=== PATIENT | female | born 1935 | race Caucasian/White ===

== ENCOUNTER 2017-12-21 07:09 | Emergency (ER) | payer OTHER ==
[~2017-12-21] VITALS: Ht 149.9 cm; Wt 52.2 kg
--- NOTE | 2017-12-21 07:43 | ED GENERAL ADULT ---
History of Present Illness General Chief Complaint: General Adult Stated Complaint: WEAKNESS/SOB Source: patient, family Exam Limitations: dementia Vital Signs & Intake/Output Vital Signs & Intake/Output Vital Signs Date Time Temp Pulse Resp B/P B/P Pulse O2 O2 Flow FiO2 Mean Ox Delivery Rate 12/21 0925 97.0 60 20 160/70 100 Room Air 12/21 0800 96 Room Air 12/21 0718 97.2 128 18 132/74 96 Room Air Allergies Coded Allergies: prochlorperazine (From COMPAZINE) (Severe, STROKE SYMPTOMS 12/21/17) Reconcile Medications Amlodipine Besylate 10 MG TABLET 1 TAB PO DAILY HEART (Reported) Aspirin (Ecotrin*) 81 MG TABLET.DR 1 TAB PO DAILY HEART HEALTH (Reported) Donepezil HCl 10 MG TABLET 1 TAB PO DAILY DEMENTIA (Reported) Fluoxetine HCl 10 MG TABLET 1.5 TAB PO DAILY MENTAL HEALTH (Reported) Solifenacin Succinate (Vesicare) 5 MG TABLET 1 TAB PO DAILY BLADDER (Reported ) Triage Note: PT STATES SHE IS HAVING DIFFICULTY BREATHING SINCE SHE WOKE THIS AM. PT STATES SHE IS SHAKING AND SHE IS HAVING DIFFICULTY AMBULATING "IT FEELS WEIRD". PT STATES SHE FEELS SICK TO HER STOMACH. NO VOMITING Triage Nurses Notes Reviewed? yes Onset: Abrupt Duration: hour(s): (SEVERAL) Timing: single episode today Injury Environment: home Severity: mild No Modifying Factors: none Associated Symptoms: SHORTNESS OF BREATH, QUESTIONABLE BACK PAIN, QUESTION CHEST PAIN HPI: This is an 82-year-old female with history of hypertension, dementia who lives at home with her daughter who presents to the ER chief complaint of shortness of breath upon awakening this morning. According to the daughter she didn't really complain anything but she looked short of breath and she looked very shaky. This is unusual for her. She also reports some back pain and chest pain but can 't say when it started, this is new according to the daughter. No fever or chills. She has been eating and drinking well. No recent falls that she is aware of. She has noticed difficult time in scientology for the last month or so getting up and sitting down and gets more exhausted with that. Approximately a week or 2 ago she went to see her primary care doctor regarding some nonspecific head pain and had a CAT scan done that was normal. She is a nonsmoker nondrinker. No history of coronary disease. Past History Travel History Traveled to [place] past 21 day No Medical History Any Pertinent Medical History? see below for history Neurological: dementia Cardiovascular: hypertension Endocrine: hypothyroidism Tetanus Vaccine: 10/11/16 Surgical History Surgical History: non-contributory Psychosocial History What is your primary language Mauritian Tobacco Use: Never used ETOH Use: denies use Illicit Drug Use: denies illicit drug use Family History Hx Contributory? No Review of Systems Review of Systems Constitutional: Denies: chills, fever. EENTM: Reports: no symptoms. Respiratory: Reports: short of breath. Denies: cough. Cardiovascular: Reports: chest pain. GI: Denies: abdominal pain. Genitourinary: Reports: no symptoms. Musculoskeletal: Reports: back pain. Skin: Reports: no symptoms. Neurological/Psychological: Reports: see HPI (SHAKY, DIZZY). Hematologic/Endocrine: Denies: bruising, bleeding, polyuria, polydipsia. Immunologic/Allergic: Reports: no symptoms. All Other Systems: Reviewed and Negative Physical Exam Physical Exam General Appearance: well developed/nourished, alert, awake, anxious, mild distress Head: atraumatic, normal appearance Eyes: Bilateral: normal appearance, PERRL, EOMI. Ears, Nose, Throat: normal pharynx, normal ENT inspection, HARD OF HEARING Neck: normal inspection, supple, full range of motion Respiratory: normal breath sounds, chest non-tender, no respiratory distress Cardiovascular: regular rate/rhythm Peripheral Pulses: 2+ radial (R), 2+ radial (L) Gastrointestinal: normal bowel sounds, soft, non-tender Back: normal inspection, normal range of motion Extremities: normal inspection, normal capillary refill, normal range of motion, no edema Neurologic/Psych: no motor/sensory deficits, awake, alert, ORIENTED TO PERSON AND PLACE BUT NOT TIME Skin: intact, normal color, warm/dry Core Measures ACS in differential dx? Yes CVA/TIA Diagnosis: No Sepsis Present: No Sepsis Focused Exam Completed? No Progress Differential Diagnoses I considered the following diagnoses in my evaluation of the patient: [Pneumonia , CHF, acute CO, unstable angina, anxiety, UTI, likely disturbance or animals him] Plan of Care: Orders Procedure Date/time Status Straight Cath 12/21 1006 Active D-DIMER 12/21 0756 Complete Telemetry/Stem Cleaning Machine Feeder 12/21 0741 Active URINALYSIS 03/20 0741 Complete TROPONIN LEVEL 12/21 740 Complete PARTIAL THROMBOPLASTIN TIME 12/21 740 Complete PROTHROMBIN TIME 12/21 740 Complete LACTIC ACID 12/21 740 Complete COMPREHENSIVE METABOLIC PANEL 12/21 740 Complete CBC WITHOUT DIFFERENTIAL 12/21 740 Complete B-TYPE NATRIURETIC PEP (BNP) 12/21 740 Complete EKG 12/21 740 Active Laboratory Tests 12/21/17 1041: Lactic Acid Cancelled 12/21/17 1018: Urinalysis LIGHT H, Urine Color YEL, Urine Clarity HAZY H, Urine pH 8.5 H, Ur Specific [place] 1.015, Urine Protein TRACE H, Urine Ketones NEG, Urine Nitrite NEG, Urine Bilirubin NEG, Urine Urobilinogen 0.2, Ur Leukocyte Esterase NEG, Ur Microscopic SEDIMENT EXAMINED, Urine WBC RARE, Ur Epithelial Cells RARE, Urine Mucus FEW, Urine Hemoglobin NEG, Urine Glucose NEG 12/21/17 0756: Anion Gap 13, Estimated GFR > 60, BUN/Creatinine Ratio 21.7, Glucose 87, Lactic Acid 1.1, Calcium 10.1, Total Bilirubin 1.1, AST 22, ALT 13, Alkaline Phosphatase 85, Troponin I < 0.01, Tis-O-Tnhanzrqmcn Pept 64.8, Total Protein 7.3, Albumin 4.5, Globulin 2.8, Albumin/Globulin Ratio 1.6, PT 11.4, INR 1.05, APTT 29, D-Dimer High Sensitivty 348 H, CBC w Diff NO MAN DIFF REQ, RBC 4.09 L , MCV 95.7, MCH 31.7 H, MCHC 33.2, RDW 14.0, MPV 8.4, Gran % 40.7 L, Lymphocytes % 44.1, Monocytes % 10.6 H, Eosinophils % 2.7, Basophils % 1.9, Absolute Granulocytes 2.3, Absolute Lymphocytes 2.5, Absolute Monocytes 0.6, Absolute Eosinophils 0.2, Absolute Basophils 0.1 12/21/17 0743: D-Dimer High Sensitivty Cancelled 12/21/2017 11:04:24 AM Patient and related well in the ER with and without a walker, never becoming hypoxic. X-ray within normal limits. Labs within normal limits. Discussed with daughter at length. No indication to admit the patient to the hospital or short-term rehabilitation. Daughter was initially given ago and a three-day vacation but she may stay home to monitor her mother. I informed them that if she develops any further symptoms, fever chills vomiting she should need to come back to the ER. Patient is smiling no complaints at this time. Diagnostic Imaging: Viewed by Me: Radiology Read. Discussed w/RAD: Radiology Read. CXR Impression: PATIENT: LOUISA TERESA PRESENT AGE: 82 PATIENT ACCOUNT NO: [id number] : 37 LOCATION: [facility] ORDERING PHYSICIAN: Analilia Carvajal MD SERVICE DATE: 12/21/17 EXAM TYPE: RAD - XRY-CHEST XRAY , TWO VIEWS EXAMINATION: XR CHEST CLINICAL INFORMATION: Rule out pneumonia. Dyspnea on exertion. Chest pain/back pain. COMPARISON: None TECHNIQUE: 2 views of the chest were obtained. FINDINGS: The lungs are clear without consolidation, edema, or effusion. There is no pneumothorax. The cardiomediastinal silhouette appears normal. There are multilevel degenerative changes in the thoracic and lumbar spine. There is focal dextroscoliotic curvature at the thoracolumbar junction. There are mild atheromatous changes in the aorta. IMPRESSION: No active disease in the chest. DICTATED BY: Raman Linton MD DATE/TIME DICTATED: 12/21/17834 RECONNAISSANCE CREWMEMBER:RENEE DATE/TIME TRANSCRIBED:12/21/17834 CONFIDENTIAL, DO NOT COPY WITHOUT APPROPRIATE AUTHORIZATION. <Electronically signed in Other Vendor System> SIGNED BY: Raman Linton MD 12/21/17840 Initial ED EKG: SINUS KAM 56 BPM, DIFFUSE ST FLATTENING Departure Departure Time of Disposition: 1059 Disposition: HOME OR SELF CARE Condition: Stable Clinical Impression Primary Impression: Dyspnea Secondary Impressions: Shakiness Referrals: Cali DING,Rodney Kimball (PCP/Family) Additional Instructions: Please follow up with her primary care doctor in the office this week. Return to the ER immediately for any changing or worsening symptoms. Departure Forms: Customer Survey General Discharge Information Critical Care Note Critical Care Note Critical Care Time: non-applicable
[2017-12-21] MEDS ORDERED: ASPIRIN EC81 M1 PO (08:01)
[2017-12-21] MEDS ORDERED: AMLODIPINE BESY10 M1 PO (08:01)
[2017-12-21] MEDS ORDERED: VESICARE5 M1 PO (08:01)
[2017-12-21] MEDS ORDERED: DONEPEZIL HCL10 M1 PO (08:02)
[2017-12-21] MEDS ORDERED: FLUOXETINE HCL10 MG PO (08:02)
[2017-12-21 08:11] LABS: ABSOLUTE BASOPHIL COUNT 0.1 /CUMM (0.0-0.2); ABSOLUTE EOSINOPHIL COUNT 0.2 /CUMM (0.0-0.7); ABSOLUTE GRANULOCYTE CT 2.3 /CUMM (1.4-6.5); ABSOLUTE LYMPH COUNT 2.5 /CUMM (1.2-3.4); ABSOLUTE MONOCYTE COUNT 0.6 /CUMM (0.10-0.60); BASOPHIL % 1.9 % (0.0-2.0); EOSINOPHIL % 2.7 % (0-5); GRANULOCYTE % 40.7 % (42.2-75.2); HEMATOCRIT 39.2 % (37-47); MEAN CORPUSCULAR HGB 31.7 PG (27.0-31.0); MEAN CORPUSCULAR HGB CONC 33.2 G/DL (33.0-37.0); MEAN CORPUSCULAR VOLUME 95.7 FL (81.0-99.0); MEAN PLATELET VOLUME 8.4 FL (7.4-10.4); PLATELET COUNT 340 /CUMM (130-400); RED BLOOD CELL CT 4.09 /CUMM (4.20-5.40); WHITE BLOOD CELL COUNT 5.7 /CUMM (4.8-10.8)
--- NOTE | 2017-12-21 08:41 | RADIOLOGY REPORT ---
EXAMINATION: XR CHEST CLINICAL INFORMATION: Rule out pneumonia. Dyspnea on exertion. Chest pain/back pain. COMPARISON: None TECHNIQUE: 2 views of the chest were obtained. FINDINGS: The lungs are clear without consolidation, edema, or effusion. There is no pneumothorax. The cardiomediastinal silhouette appears normal. There are multilevel degenerative changes in the thoracic and lumbar spine. There is focal dextroscoliotic curvature at the thoracolumbar junction. There are mild atheromatous changes in the aorta. IMPRESSION: No active disease in the chest.
[2017-12-21 08:44] LABS: PT 11.4 SEC (9.4-12.5); PTT 29 SEC (25-37)
[2017-12-21 11:24] VITALS: BP 138/72
== END 2017-12-21 11:25 ==
LOC: ERH 07:09
PROVIDERS: Emergency Medicine
DX: R06.00 Dyspnea, unspecified (principal)
CPT/HCPCS: 71046; 81001; 93005; 93010

== ENCOUNTER 2018-06-24 13:15 | Emergency (ER) | payer OTHER ==
[~2018-06-24] VITALS: Ht 147.3 cm; Wt 49.0 kg
[~2018-06-24 13:15] MED LIST: AMLODIPINE BESY10 M1 PO; ASPIRIN EC81 M1 PO; DONEPEZIL HCL10 M1 PO; FLUOXETINE HCL10 MG PO; VESICARE5 M1 PO
--- NOTE | 2018-06-24 14:25 | ED GI/GU/ABDOMINAL COMPLAINT ---
History of Present Illness General Chief Complaint: General Adult Stated Complaint: "HEMORRHOID IS PERTRUDING & SPLITTING" PER FAMILY Source: patient, family Exam Limitations: dementia Vital Signs & Intake/Output Vital Signs & Intake/Output Vital Signs Date Time Temp Pulse Resp B/P B/P Pulse O2 O2 Flow FiO2 Mean Ox Delivery Rate 06/24 1437 96.0 58 20 144/64 97 Room Air 06/24 1330 97.9 65 20 140/74 96 Room Air Allergies Coded Allergies: prochlorperazine (From COMPAZINE) (Severe, STROKE SYMPTOMS 06/24/18) Reconcile Medications Amlodipine Besylate 10 MG TABLET 1 TAB PO DAILY HEART (Reported) Aspirin (Ecotrin*) 81 MG TABLET.DR 1 TAB PO DAILY HEART HEALTH (Reported) Donepezil HCl 10 MG TABLET 1 TAB PO DAILY DEMENTIA (Reported) Fluoxetine HCl 10 MG TABLET 1.5 TAB PO DAILY MENTAL HEALTH (Reported) Hydrocortisone (Anusol-Hc) 2.5 % CREAM..G. 1 TRELL TOP BID PRN hemorroid apply to affected area(s) Solifenacin Succinate (Vesicare) 5 MG TABLET 1 TAB PO DAILY BLADDER (Reported ) Triage Note: TRIAGE: PT TO ER WITH DAUGHTER C/C HEMORRHOID "WHICH IS VERY LARGE, OUTER AND ALSO APPEARED TO BE SPLIT" PER DAUGHTER. DAUGHTER REPORTS WHEN SHE CAME HOME LAST NIGHT SHE FOUND PATIENT WITH STOOL ON HER AND NOTICED THE POSSIBLE HEMORRHOID WHEN SHE WAS CLEANING HER UP. PATIENT HAS DEMENTIA AND OFFERS NO COMPLAINTS, DENIES PAIN. KENDRICK OATES EVALUATING PATIENT AT TRIAGE. Triage Nurses Notes Reviewed? yes ? n Is pt currently ? No HPI: Patient is a 83 y/o female with dementia who presents with her daughter for evaluation of possible hemorrhoids. According to daughter the patient has been complaining of abdominal pain for the last few days while stooling. Yesterday the daughter found the patient with feces on her leg and noticed a buldging mass when cleaning the rectum. She denies any visualizing any blood in the rectum or recent constipation. Patient does not currently offer any complaints. Past History Travel History Traveled to [place] past 21 day No Medical History Any Pertinent Medical History? 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 No Review of Systems Review of Systems Constitutional: Reports: no symptoms. EENTM: Reports: no symptoms. Respiratory: Reports: no symptoms. Cardiovascular: Reports: no symptoms. GI: Reports: abdominal pain. Genitourinary: Reports: no symptoms. Musculoskeletal: Reports: no symptoms. Skin: Reports: no symptoms. Neurological/Psychological: Reports: dementia. Hematologic/Endocrine: Reports: no symptoms. Immunologic/Allergic: Reports: no symptoms. All Other Systems: Reviewed and Negative Physical Exam Physical Exam General Appearance: well developed/nourished, no apparent distress, alert, awake Head: atraumatic, normal appearance Eyes: Bilateral: normal appearance, EOMI. Ears, Nose, Throat, Mouth: hearing grossly normal Neck: normal inspection, supple Respiratory: normal breath sounds, chest non-tender, no respiratory distress Cardiovascular: regular rate/rhythm Peripheral Pulses: 2+ radial (R), 2+ radial (L), 2+ dorsalis pedis (R), 2+ dorsalis pedis (L) Gastrointestinal: normal bowel sounds, soft, non-tender, no organomegaly Rectal: 3 external inflammed hemmorrhoids on exam without thrombosis. Neurologic/Psych: awake, alert, dementia Skin: intact, normal color, warm/dry Core Measures ACS in differential dx? No Sepsis Present: No Sepsis Focused Exam Completed? No Progress Differential Diagnosis: Hemorroid vs thrombosed hemorroid, vs rectal prolapse, vs internal hemorroid. Plan of Care: Due to history and physical further evaluation including imaging and laboratory not indicated this time. Initial ED EKG: none Comments: Spoke with the patient and caregiver regarding fiber in the use of Anusol. Follow-up with a surgeon for definitive treatment. Departure Departure Disposition: HOME OR SELF CARE Condition: Stable Clinical Impression Primary Impression: Acute hemorrhoid Referrals: Ashley DING,Cm Leiva MD,Rodney Kimball (PCP/Family) Departure Forms: Customer Survey General Discharge Information Prescriptions: Current Visit Scripts Hydrocortisone (Anusol-Hc) 1 TRELL TOP BID PRN hemorroid #30 GM apply to affected area(s) Comments Please note that there might be incidental findings in your evaluation that are unrelated to the current emergency department visit. Please notify your primary care doctor about this emergency department visit in order to obtain and review all of the testing performed so that these incidental findings can be monitored as needed. If you had an x-ray performed, please understand that some fractures may not be seen on the initial set of x-rays. If your symptoms persist you might need a repeat set of x-rays to check for such a fracture. If you had a laceration evaluated, please understand that foreign bodies such as glass or wood may not be visible to the naked eye or on plain x-rays. If the wound becomes red, swollen, increasingly more painful or if there is any drainage from the wound, please have it reevaluated by a physician for the possibility of a retained foreign body. If you're unable to follow up as outlined in the discharge instructions please return to the emergency department.
[2018-06-24 14:37] VITALS: BP 144/64
[2018-06-24] MEDS ORDERED: ANUSOL-HC30 GM TOP (14:42)
== END 2018-06-24 14:57 ==
LOC: ERH 13:15
DX: K64.4 Residual hemorrhoidal skin tags (principal); F03.90 Unspecified dementia, unspecified severity, without behavioral disturbance, psychotic disturbance, mood disturbance, and anxiety; I10 Essential (primary) hypertension; E03.9 Hypothyroidism, unspecified